=== PATIENT | male | born 1985 | race Hispanic/Latino ===

== ENCOUNTER 2022-12-22 05:40 | Day surgery (SDC) | payer BC ==
[2022-12-20 12:41] LABS: BASOPHILS % (AUTO) 0.5 % (0.0-5.0); EOSINOPHILS % (AUTO) 3.5 % (0.0-8.0); HEMATOCRIT 46.4 % (42-54); LYMPHOCYTES % (AUTO) 28.4 % (21.0-51.0); MEAN CORPUSCULAR HEMOGLOBIN 28.8 pg (27.0-33.0); MEAN CORPUSCULAR HGB CONC 33.8 g/dL (32.0-36.0); MEAN CORPUSCULAR VOLUME 85.1 fL (79-99); NEUTROPHILS % (AUTO) 58.2 % (40.0-77.0); PLATELET COUNT (AUTO) 243 K/uL (130-400); RED BLOOD CELL COUNT(AUTO) 5.45 MIL/uL (4.50-6.20); RED CELL DISTRIBUTION WIDTH 12.8 % (11.0-15.5); WHITE BLOOD COUNT (AUTO) 7.4 K/uL (4.8-10.8)
[2022-12-20 17:23] VITALS: BP 140/80; PULSE 77; RESP 13
[2022-12-22] VITALS (18 sets, daily range): BP systolic 105–147; BP diastolic 53–91; PULSE 76–101; RESP 15–24
[~2022-12-22] VITALS: Ht 177.8 cm; Wt 118.0 kg
[~2022-12-22 05:40] MED LIST: LISI10TA24 PO
[2022-12-22] MEDS ORDERED: LACTATED RINGERS 1000ML 1,000 ML IV ONE (06:10)
[2022-12-22] MEDS ORDERED: CEFAZOLIN SODIUM 2 GM VIAL ONE (06:10)
[2022-12-22] MEDS ORDERED: BUPIVACAINE/PF 0.25% 30ML VIAL IJ ONE (07:07)
[2022-12-22] MEDS ORDERED: LIDOCAINE HCL 1% 20 ML VIAL ONE (07:07)
[2022-12-22] MEDS ORDERED: BACITRACIN 28.4 GM OINT TP ONE (07:08)
[2022-12-22] MEDS ORDERED: ONDANSETRON 4MG INJ ONE (07:36)
[2022-12-22] MEDS ORDERED: FENTANYL CITRATE PF 50 MCG/1 ML 2ML VIAL ONE (07:36)
[2022-12-22] MEDS ORDERED: DEXAMETHASONE SOD PHOSPHATE 10MG/ML 1ML VIAL ONE (07:36)
[2022-12-22] MEDS ORDERED: PROPOFOL 10 MG/ML 20ML VIAL IV ONE ×2 (07:36→08:03)
[2022-12-22] MEDS ORDERED: MIDAZOLAM HCL 1 MG/ML 2ML VIAL ONE (07:36)
[2022-12-22] MEDS ORDERED: LIDOCAINE PF 100MG/5ML (2%) SYRINGE 5ML ONE (07:36)
[2022-12-22] MEDS ORDERED: CEFAZOLIN SODIUM 2 GM VIAL IVPB ONE (07:55)
[2022-12-22] MEDS ORDERED: MEPERIDINE-PF 25 MG/ML SYG ONE (08:31)
[2022-12-22] MEDS ORDERED: KETOROLAC 30MG VIAL (30MG/ML) ONE (08:50)
== END 2022-12-22 10:40 | disposition home or self-care (01) ==
LOC: DAH 05:40
PROVIDERS: ATTEND Urology
DX: N47.1 Phimosis (principal); Z20.822 Contact with and (suspected) exposure to COVID-19; N47.8 Other disorders of prepuce; N47.5 Adhesions of prepuce and glans penis; I10 Essential (primary) hypertension; E66.9 Obesity, unspecified
CPT/HCPCS: 54161; 87426; 36415; 80048; 85025; 54164; A6260; A4663; J7120; J3010; J1100; J3490; J2001; J2250; J2704 ×2; J2405; J1885; J2175; J0690 ×2; A4215; A4223; A4222; A4221; A4600; A4510